=== PATIENT | female | born 1985 | race Caucasian/White ===

== ENCOUNTER 2023-12-09 08:30 | Inpatient (IN) ==
[2023-12-09] MEDS ORDERED: LORazepam 2 mg VIAL 1 ml IV PUSH PRN ×4 (10:01→12:23)
[2023-12-09] MEDS ORDERED: ASA-APAP-CAFFEINE ES (NF) TAB PO PRN (12:04)
[2023-12-09] MEDS: Butalb/Acetamin/Caff TAB 325-50-40MG PO PRN (12:26)
[2023-12-10] MEDS: PHENobarbital 100 mg TAB PO SCH (08:59)
[2023-12-10] MEDS ORDERED: PROPRANOLOL PO SCH (09:00)
[2023-12-10] MEDS: Azelastine 0.1% Nasal (NF) 30 ML BTL BOTH NARES SCH (09:00)
[2023-12-10] MEDS ORDERED: BENZOYL PEROXIDE 5% TOPICAL SCH (09:00)
[2023-12-11] MEDS: Calcium Carb (TUMS) 500 mg CHEW TAB PO ONE (00:49)
[2023-12-11] MEDS: Al Hydrox/Mg Hydrox/Simet LIQ 30 ML UDC PO PRN (16:02)
[2023-12-12 08:05] VITALS: BP 104/60
== END 2023-12-12 15:00 | disposition home or self-care (01) | DRG 756 ==
LOC: MEDTELE 08:53
PROVIDERS: ADMIT Psychiatry & Neurology Neurology; ATTEND Internal Medicine